=== PATIENT | male | born 1955 | race Caucasian/White ===

== ENCOUNTER 2017-11-02 07:21 | Day surgery (SDC) | payer OTHER ==
[2017-11-01 10:45] LABS: Absolute Lymphocytes (CBC) 1.9 K/uL (0.7-4.9); Absolute Monocytes 0.6 K/uL (0.1-1.3); Absolute Neutrophil 4.3 K/uL (1.8-8.0); Basophils % 0.2 % (0-1.3); Eosinophils % 1.3 % (0-4.4); Hematocrit 44.3 % (39.6-49.0); Lymphocytes % 27.1 % (15.3-44.8); MCH 31.1 pg (27.0-35.0); MCV 92.1 fL (80-100); Monocytes % 9.2 % (3.3-12.3); RBC Red Blood Cell Count 4.81 M/uL (4.33-5.43)
[2017-11-01 10:49] LABS: Protime INR 0.95
[2017-11-01 11:01] LABS: Potassium 4.1 mEq/L (3.6-5.0)
--- NOTE | 2017-11-01 11:28 | RAD REPORT ---
EXAM DESCRIPTION: RADOP - Outpatient Chest Single View - 11/01/2017 10:41 am CLINICAL HISTORY: Preop chest, pending cardiac catheterization COMPARISON: August 2014 portable TECHNIQUE: AP portable chest image was obtained 1038 hours . FINDINGS: No failure, infiltrate or acute lung parenchymal process. Patient has fibrotic lung change as a baseline. Two small sub centimeter nodules are present in the right midlung field. These are re latively dense and could be mineralized. No mediastinal or hilar mass. No other lung parenchymal nodu les seen. These nodules are not clearly seen on the prior study though there are technical difference s which could result in nonvisualization on the prior study. Heart and vasculature are normal. No measurable pleural effusion and no pneumothorax. No gross bony abnormality seen. No acute aortic findings suspected. IMPRESSION: No failure, infiltrate or acute cardiopulmonary finding. Two small sub centimeter nodules in the right midlung field are suspected to be calcified and may be granulomas. No other findings to suggest an active or aggressive malignant process. A follow-up CT study with con trast could be performed for further characterization.
[2017-11-02] MEDS ORDERED: NA CHLORIDE 0.9% 500 ML ONE ×2 (07:56→12:15)
[2017-11-02] MEDS ORDERED: HEPA 1000U/500MLS 1,000 UNIT/500 ML BAG IV ONE (08:49)
[2017-11-02] MEDS ORDERED: LIDOCAINE 1% 20 ML MDV ONE (08:49)
[2017-11-02] MEDS ORDERED: CLOPIDOGREL 75 MG TABLET ONE (09:52)
[2017-11-02] MEDS ORDERED: ONDANSETRON 4 MG/2 ML VIAL ONE (09:53)
[2017-11-02] MEDS ORDERED: FENTANYL CITR 100 MCG/2 ML ONE (10:02)
[2017-11-02] MEDS ORDERED: MIDAZOLAM HCL 2 MG/2 ML INJ ONE (10:02)
[2017-11-02] MEDS ORDERED: NA CHLORIDE 0.9% 50 ML ONE (10:03)
[2017-11-02] MEDS ORDERED: ASPIRIN 325 MG TAB ONE (10:08)
[2017-11-02] MEDS ORDERED: ZOLPIDEM TARTRATE 5 MG TABLET PO PRN (12:09)
[2017-11-02] MEDS ORDERED: NITROGLYCERIN 0.4 MG/TAB SL PRN (12:09)
[2017-11-02] MEDS ORDERED: FENTANYL CITR 100 MCG/2 ML IV PRN (12:10)
[2017-11-02] MEDS ORDERED: DIAZEPAM 5 MG TABLET PO PRN (12:35)
[2017-11-02] MEDS ORDERED: ACETAMINOPHEN 325 MG TABLET PO PRN (13:00)
[2017-11-02] MEDS ORDERED: NA CHLORIDE 0.9% 1,000 ML IV SCH (13:00)
[2017-11-02] MEDS: ALBUTEROL 2.5 MG/3 ML NEB SOL NEB PRN (16:25)
[2017-11-02] MEDS ORDERED: ATORVASTATIN 80 MG TAB PO SCH (21:00)
--- NOTE | 2017-11-03 03:41 | OP ---
Surgeon: Florencio Díaz MD Indications: Mr. Yun is a 62-year-old white male, who had an angioplasty of his RCA and LAD in . I saw him in the office on 11/01/2017 with unstable angina, scheduled for a heart catheterizatio n as an outpatient on 11/02/2017. Procedure In Detail: The patient was brought to the laboratory tester, prepped and draped in the routine ster ile fashion. A 6-Kyrgyz sheath was introduced in the right common femoral artery. StarClose was use d to close the procedure. The patient also had 6-Kyrgyz catheters used to investigate his left and r ight coronary anatomy. His RCA was positive for an old stent that was patent with minimal coronary a rtery disease. It was right dominant. His circumflex was normal. His proximal LAD stent was normal and patent. He had about an 80% mid LAD stenosis. This was primarily stented with a 2.5 x 12 Syner gy with 0% residual. The patient tolerated the procedure well. There were no complications. Total Blood Loss: 5 cc. Total Sedation: 45 minutes. Final Assessment And Plan: Coronary artery disease, status post mid left anterior descending artery stent, primary, successful. Angiomax was used. The patient was given Plavix and aspirin. He will s weston overnight and go home tomorrow on aspirin and Plavix and statin. He will see me in the office in 2 weeks. SANTI/KAILEE Voice ID: [id number] Report ID: [id number]
[2017-11-03] MEDS: ALBUTEROL 2.5 MG/3 ML NEB SOL NEB PRN (06:14)
[2017-11-03 06:30] LABS: Absolute Lymphocytes (CBC) 1.6 K/uL (0.7-4.9); Absolute Monocytes 0.7 K/uL (0.1-1.3); Basophils % 0.2 % (0-1.3); Eosinophils % 1.4 % (0-4.4); Hematocrit 41.5 % (39.6-49.0); MCH 31.9 pg (27.0-35.0); MCV 92.8 fL (80-100); MPV 7.9 fL (7.6-11.3); Monocytes % 9.8 % (3.3-12.3); RBC Red Blood Cell Count 4.47 M/uL (4.33-5.43)
[2017-11-03 06:57] LABS: Potassium 4.2 mEq/L (3.6-5.0)
[2017-11-03 07:53] VITALS: BP 124/82; TEMP 97.5
[2017-11-03] MEDS ORDERED: CLOPIDOGREL 75 MG TABLET PO SCH (09:00)
[2017-11-03] MEDS ORDERED: ASPIRIN 81 MG CHEWABLE TABLET PO SCH (09:00)
[2017-11-03 09:25] VITALS: O2SAT 93
--- NOTE | 2017-11-03 09:53 | EKG ---
Test Date: 2017-11-03 Test Time: 07:59:17 [employer] Teacher: KATELYNN MEASUREMENT RESULTS: Intervals: Rate: 68 OH: 160 QRSD: 98 QT: 394 QTc: 418 [place]: P: 51 OH: 160 QRS: 80 T: 67 INTERPRETIVE STATEMENTS: Normal sinus rhythm Normal ECG Compared to ECG 08/14/2014 07:05:40 No significant changes Electronically Signed On 11-03-17 09:51:40 CDT by Héctor Byrne
--- NOTE | 2017-11-03 23:26 | DS ---
Date of Discharge: 11/03/2017 Mr. Yun had a primary stent to his mid LAD on 11/02/2017. Today 11/03/2017, he has no complaint. His right groin is intact without any hematoma. Has good distal pulses. Telemetry had showed moris l rhythm. He will be discharged today on aspirin, Plavix, statin and he will see me in the office in about 2 weeks. His brief history is that he had came in to my office on 11/01/2017 with classic uns table angina symptoms. Has had an angioplasty and stent of the LAD and the RCA in 2014. Has hyperte nsion, dyslipidemia. Family history of heart disease and history of tobacco abuse. [facility] was [facility] [employer] as an outpatient on 11/02/2017. Catheterization showed patent stent in the LAD and the RCA from 2014, but he had a new mid-LAD stenosis about 80%. This was stented successfully with a 2.5 x 12 Synergy primary stent. No complications. The patient had done well overnight. He will be going home today with the above-mentioned medication. He will see me in 2 weeks. Normal activities in 48 hours. He will follow a low-fat, low-cholesterol diet. SANTI/KAILEE Voice ID: [id number] Report ID: [id number]
== END 2017-11-03 10:06 | disposition home or self-care (01) ==
LOC: CCL 07:21 → 4TH 09:30 → UNDOADMOB 09:30 → CCL 11-03 10:06 → UNDODISOB 11-03 10:06
PROC: 4A023N7 Measurement of Cardiac Sampling and Pressure, Left Heart, Percutaneous Approach (ICD-10-PCS; principal; 2017-11-02)
PROC: B201YZZ Plain Radiography of Multiple Coronary Arteries using Other Contrast (ICD-10-PCS; 2017-11-02)
PROC: B205YZZ Plain Radiography of Left Heart using Other Contrast (ICD-10-PCS; 2017-11-02)
PROC: 027034Z Dilation of Coronary Artery, One Artery with Drug-eluting Intraluminal Device, Percutaneous Approach (ICD-10-PCS; 2017-11-02)
DX: I25.110 Atherosclerotic heart disease of native coronary artery with unstable angina pectoris (principal); I10 Essential (primary) hypertension; E78.5 Hyperlipidemia, unspecified; E78.6 Lipoprotein deficiency; I25.2 Old myocardial infarction; J44.9 Chronic obstructive pulmonary disease, unspecified; F17.210 Nicotine dependence, cigarettes, uncomplicated; Z95.5 Presence of coronary angioplasty implant and graft; Z88.6 Allergy status to analgesic agent; Z82.49 Family history of ischemic heart disease and other diseases of the circulatory system
CPT/HCPCS: 36415; 71045; 80048; 80061; 85025; 85347; 85610; 85730; 92928; 93005; 93458; C1725; C1760; C1877; C1893; J0583; J2250; J2405; J3010; J7030